=== PATIENT | female | born 1940 | race Hispanic/Latino ===

== ENCOUNTER → 2018-05-17 | Emergency (ER) | payer OTHER ==
[~2018-05-17] VITALS: Ht 149.9 cm; Wt 80.9 kg
[~2018-05-17] MED LIST: D5.45%NS/KCL 20MEQ 1,000 ML IV SCH; PANTOPRAZOLE 40 MG 10ML VIAL IV SCH; POTASSIUM CHLORIDE 10MEQ/100ML 10 MEQ in POTASSIUM CHLORIDE 10MEQ/100ML 100 ML IV ONE; POTASSIUM CHLORIDE 10MEQ/100ML 100 ML IV SCH; SODIUM CHLORIDE 0.9% 250ML 250 ML IV ONE
== END | disposition home or self-care (01) ==
LOC: FSED 17:09 → UNDOADMOB 19:43 → ERHOLD 19:43
DX: M54.2 Cervicalgia (principal); S16.1XXA Strain of muscle, fascia and tendon at neck level, initial encounter; S20.211A Contusion of right front wall of thorax, initial encounter; V43.53XA Car driver injured in collision with pick-up truck in traffic accident, initial encounter; Y92.488 Other paved roadways as the place of occurrence of the external cause; I10 Essential (primary) hypertension; E11.9 Type 2 diabetes mellitus without complications; E03.9 Hypothyroidism, unspecified
CPT/HCPCS: 71046; 93005; 99284; J3480; J7050

== ENCOUNTER 2019-03-22 16:08 | Emergency (ER) | payer MEDICARE, OTHER ==
[~2019-03-22] VITALS: Ht 149.9 cm; Wt 83.9 kg
--- OUTSIDE RECORDS SUMMARY | 2019-03-22 16:11 | XMS REPORT ---
Author Author [facility] Address Unknown Phone Unavailable Care Team Providers Care Calender Tender Name Role Phone Unavailable Unavailable Problems This patient has no known problems. Allergies, Adverse Reactions, Alerts This patient has no known allergies or adverse reactions. Medications This patient has no known medications. Encounters Start Date/Time End Date/Time Encounter Type Admission Type Attending Clinicians Care Facility Care Department Encounter ID 2019-02-13 14:43:02 Outpatient [id number]
[2019-03-22] MEDS ORDERED: SODIUM CHLORIDE 0.9% 1000ML 1,000 ML IV SCH (16:30)
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
[2019-03-22] MEDS ORDERED: SODIUM CHLORIDE 0.9% 1000ML 1,000 ML ONE (17:50)
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
--- NOTE | 2019-03-22 18:20 | NUR ---
PT REFUSED C-COLLAR AND REMOVED IT. PT VERBALIZED UNDERSTANDING OF THE RISK OF REMOVING THE C-COLLAR ER MD NOTIFIED.
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
--- NOTE | 2019-03-22 18:53 | NUR ---
REPORT TO SAMMIE NASH
--- NOTE | 2019-03-22 19:05 | NUR ---
PT AND DAUGHTER REFUSED SECOND IV PLACEMENT STATING "YEAH WE ARENT GOING TO DO THAT. THEY CAN DO IT WHEN WE GET TO [facility] AND MAR CAN USE THEY X-RAY MACHINE"
== END 2019-03-22 20:00 | disposition short-term general hospital (02) ==
LOC: FSED 16:08
DX: S20.211A Contusion of right front wall of thorax, initial encounter (principal); S50.11XA Contusion of right forearm, initial encounter; S30.1XXA Contusion of abdominal wall, initial encounter; V43.02XA Car driver injured in collision with other type car in nontraffic accident, initial encounter; Y92.410 Unspecified street and highway as the place of occurrence of the external cause; E11.65 Type 2 diabetes mellitus with hyperglycemia; I10 Essential (primary) hypertension; E78.00 Pure hypercholesterolemia, unspecified; Z88.5 Allergy status to narcotic agent
CPT/HCPCS: 70450; 71045; 72125; 80053; 81003; 82553; 84484; 85025; 93005; 99284; J7030

== ENCOUNTER 2021-10-09 11:18 | Emergency (ER) | payer MEDICARE ==
[~2021-10-09] VITALS: Ht 149.9 cm; Wt 78.9 kg
[2021-10-09] MEDS ORDERED: CEPHALEXIN500 M1 PO (12:47)
== END 2021-10-09 13:11 | disposition home or self-care (01) ==
LOC: FSED 11:38
DX: N39.0 Urinary tract infection, site not specified (principal)
CPT/HCPCS: 81003; 99282